=== PATIENT | female | born 1980 | race African-American/Black ===

== ENCOUNTER 2017-11-04 08:51 | Emergency (ER) | payer MEDICAID ==
[~2017-11-04] VITALS: Ht 165.1 cm; Wt 56.8 kg
[2017-11-04] MEDS ORDERED: LIDOCAINE HCL/PF 1% 5 ML VIAL INJ ONE (11:30)
[2017-11-04] MEDS ORDERED: POVIDONE-IODINE 10% 15 ML SOLUTION UD TP ONE (11:30)
[2017-11-04] MEDS ORDERED: KETOROLAC TROMETHAMINE 30 MG/ML VIAL IM ONE (11:45)
[2017-11-04 11:50] VITALS: BP 113/65
== END 2017-11-04 11:54 | disposition home or self-care (01) ==
LOC: EMS 08:54
DX: N76.4 Abscess of vulva (principal)
CPT/HCPCS: 56405; 96372; 99284; J1885; J3490; 10060; 99283